=== PATIENT | male | born 1995 | race Caucasian/White ===

== ENCOUNTER 2020-12-20 08:17 | Emergency (ER) | payer MEDICAID ==
[~2020-12-20] VITALS: Ht 170.2 cm; Wt 87.1 kg
[2020-12-20 08:31] VITALS: BP 140/96
[2020-12-20] MEDS ORDERED: OFLO5SOL27 LEFT EAR (09:14)
[2020-12-20] MEDS ORDERED: AMOX500C25 PO (09:14)
[2020-12-20] MEDS ORDERED: NAPR-54 PO (09:14)
[2020-12-20 09:20] VITALS: BP 140/96
== END 2020-12-20 09:20 | disposition home or self-care (01) ==
LOC: MED 08:17
DX: H60.92 Unspecified otitis externa, left ear (principal); J02.9 Acute pharyngitis, unspecified; F17.210 Nicotine dependence, cigarettes, uncomplicated; Z79.899 Other long term (current) drug therapy
CPT/HCPCS: 99283